=== PATIENT | female | born 1955 | race Asian ===

== ENCOUNTER 2018-11-21 08:01 | Outpatient (CLI) | payer BC ==
[~2018-11-21 08:01] MED LIST: SIMV20TA6 PO
[2018-11-21 09:11] LABS: BASOPHILS # (AUTO) 0.1 K/uL (0.0-0.2); BASOPHILS % (AUTO) 1.9 % (0.0-2.0); EOSINOPHILS # (AUTO) 0.2 K/uL (0.0-0.4); EOSINOPHILS % (AUTO) 3.9 % (0.0-4.0); HEMATOCRIT 47.8 % (36-48); HEMOGLOBIN 15.9 g/dL (12.0-16.0); LYMPHOCYTES # (AUTO) 1.7 K/uL (1.0-5.5); LYMPHOCYTES % (AUTO) 34.6 % (20.5-51.5); MEAN CORPUSCULAR HEMOGLOBIN 32 pg (27-31); MEAN CORPUSCULAR HGB CONC 33 % (32-36); MEAN CORPUSCULAR VOLUME 95 fL (79.0-98.0); MONOCYTES # (AUTO) 0.5 K/uL (0.0-1.0); MONOCYTES % (AUTO) 9.2 % (1.7-9.3); NEUTROPHILS # (AUTO) 2.5 K/uL (1.8-7.7); NEUTROPHILS % (AUTO) 50.4 % (40.0-70.0); PLATELET COUNT (AUTO) 236 K/uL (130-430); RED BLOOD CELL COUNT(AUTO) 5.05 MIL/uL (4.2-6.2); RED CELL DISTRIBUTION WIDTH 12.9 % (9.0-15.0)
[2018-11-21 09:12] LABS: BILIRUBIN,URINE NEGATIVE (NEGATIVE); BLOOD, URINE 1+ (NEGATIVE); CLARITY/URINE SL HAZY (CLEAR); COLOR,URINE YELLOW (YELLOW); GLUCOSE,URINE NEGATIVE (NEGATIVE); KETONES,URINE NEGATIVE (NEGATIVE); LEUKOCYTE ESTERASE ,URINE 1+ (NEGATIVE); NITRITE, URINE NEGATIVE (NEGATIVE); PH,URINE 7.5 (5.0-8.0); PROTEIN URINE NEGATIVE (NEGATIVE); UROBILINOGEN,URINE 0.2 (0.2-1.0)
[2018-11-21 09:41] LABS: ALBUMIN 3.9 g/dL (3.4-4.8); CALCIUM 9.4 mg/dL (8.4-11.0); CREATININE 0.77 mg/dL (0.55-1.30); THYROID STIMULATING HORMONE 1.35 uIu/mL (0.34-4.82); TOTAL BILIRUBIN 0.5 mg/dL (0.0-1.0); URIC ACID 5.6 mg/dL (2.4-7.0)
[2018-11-21 09:46] LABS: BACTERIA,URINE FEW /HPF (None Seen)
[2018-11-22 12:09] LABS: HEMOGLOBIN A1C 5.8 % (4.8-5.6)
== END 2018-11-21 17:55 | disposition home or self-care (01) ==
LOC: SLB 08:01
PROVIDERS: ATTEND Internal Medicine
DX: I08.1 Rheumatic disorders of both mitral and tricuspid valves (principal)
CPT/HCPCS: 36415; 80053; 80061; 81000-TC; 82306; 82607; 83036; 83735-TC; 84443-TC; 84550-TC; 85025; 93005; 93306

== ENCOUNTER 2021-04-23 01:18 | Emergency (ER) | payer BC, MEDICAID ==
[~2021-04-23] VITALS: Ht 157.5 cm; Wt 64.4 kg
[~2021-04-23 01:18] MED LIST changes: +SIMV-43 PO; -SIMV20TA6 PO
--- NOTE | 2021-04-23 01:50 | NUR ---
Called to triage, no answer
[2021-04-23 02:54] VITALS: BP_SYST 165
--- NOTE | 2021-04-23 02:54 | NUR ---
Patient to ER bed 5 to gown for evaluation. Side rails up
--- NOTE | 2021-04-23 03:00 | NUR ---
Pt BIB family to ED C/O progressive swelling of the lips/posterior pharynx with the constricting sensation of several hours duration. Patient initially attributed this to possible food reaction although notes having been placed on lisinopril approxi-1 week [employer]. No wheezing or shortness of breath. No lightheadedness dizziness or chest pain
--- NOTE | 2021-04-23 03:04 | NUR ---
Dr. Browning [facility] for pt eval
[2021-04-23] MEDS ORDERED: NACL 0.9% 1,000 ML IV ONE (03:30)
[2021-04-23] MEDS ORDERED: EPINEPHrine 1 MG/ML VIAL IM ONE ×2 (03:30→03:45)
[2021-04-23] MEDS ORDERED: FAMOTIDINE PF 20 MG/2 ML VIAL IVP ONE (03:30)
[2021-04-23] MEDS ORDERED: DEXAMETHASONE SOD PHOSPHATE 10 MG/ML VIAL IVP ONE (03:30)
[2021-04-23] MEDS ORDERED: DIPHENHYDRAMINE INJ 50 MG/ML VIAL IVP ONE (03:30)
--- NOTE | 2021-04-23 03:40 | NUR ---
# 24 gauge angiocath placed to left wrist. Use of asceptic technique. Opsite placed over site. Blood return noted. Blood for lab drawn from site. Flushed with 10 cc of normal saline. No evidence of infiltration noted. Patient tolerated well.
[2021-04-23] MEDS: NORMAL SALINE 5 ML DISP.SYRIN IVF SCH ×2 (03:58→06:26)
--- NOTE | 2021-04-23 04:20 | NUR ---
Pt resting in comfort post med adm, well tolerated.
[2021-04-23] MEDS ORDERED: RACEPINEPHRINE HCL 0.5 ML VIAL.NEB INH ONE (04:45)
--- NOTE | 2021-04-23 05:08 | NUR ---
Pt ambulated to and from restroom, well tolerated
[2021-04-23] MEDS ORDERED: LORA5SOL7 PO (06:05)
[2021-04-23] MEDS ORDERED: AMLO5TAB4 PO (06:05)
[2021-04-23] MEDS ORDERED: PRELO PO (06:05)
[2021-04-23] MEDS ORDERED: EPIN0.152 IM (06:05)
[2021-04-23] MEDS ORDERED: amLODIPine BESYLATE 5 MG TABLET ONE (06:14)
[2021-04-23 06:20] VITALS: BP_SYST 121
--- NOTE | 2021-04-23 06:20 | NUR ---
Patient given written and verbal discharge instructions and verbalizes understanding. ER MD discussed with patient the results and treatment provided. Patient in stable condition. ID arm band removed. IV catheter removed intact and dressing applied, well tolerated. Rx of Norvasc, Epipen, and Prelone given. Patient educated on pain management and to follow up with PMD. Pain Scale 0/10 Opportunity for questions provided and answered. Medication side effect fact sheet provided.
== END 2021-04-23 06:20 | disposition home or self-care (01) ==
LOC: SED 01:18
DX: T78.3XXA Angioneurotic edema, initial encounter (principal); T46.4X5A Adverse effect of angiotensin-converting-enzyme inhibitors, initial encounter; I10 Essential (primary) hypertension; Z88.8 Allergy status to other drugs, medicaments and biological substances; Z79.899 Other long term (current) drug therapy; Y92.89 Other specified places as the place of occurrence of the external cause
CPT/HCPCS: 94640; 96361; 96372; 96374; 96375; 99284; J0171; J1100; J1200; J7030